=== PATIENT | male | born 1990 | race African-American/Black ===

== ENCOUNTER 2021-11-08 14:50 | Emergency (ER) | payer OTHER ==
[~2021-11-08] VITALS: Ht 185.4 cm; Wt 88.5 kg
[2021-11-08 15:00] VITALS: BP 150/104
[2021-11-08] MEDS ORDERED: AMOX TR-K CLV1 EAC4 PO (16:25)
== END 2021-11-08 16:32 | disposition home or self-care (01) ==
LOC: ER 14:50
DX: S61.051A Open bite of right thumb without damage to nail, initial encounter (principal); Y04.1XXA Assault by human bite, initial encounter; Y93.89 Activity, other specified; Y92.89 Other specified places as the place of occurrence of the external cause; Y99.8 Other external cause status